=== PATIENT | male | born 1985 | race Caucasian/White ===

== ENCOUNTER 2017-10-17 15:39 | Emergency (ER) | payer SELFPAY ==
--- NOTE | 2017-10-17 15:58 | EDM.PDOC ---
ED HPI GENERAL MEDICAL PROBLEM - General Chief Complaint: Upper Extremity Injury/Pain Stated Complaint: LT SHOULDER HURTS Time Seen by Provider: 10/17/17 15:58 Source of Information: Reports: Patient - History of Present Illness INITIAL COMMENTS - FREE TEXT/NARRATIVE: HISTORY AND PHYSICAL: History of present illness: [Patient presents with left shoulder pain, as well as pain of his proximal collarbone after tying his 's boots, no deformity patient appreciates a crepitus over his or no clavicular she is tender to him he is in no distress rates pain 2 out of 10 he does have some muscle spasm along infraspinatus on the left otherwise completely normal exam no trauma Either nausea vomiting chills sweats ] Review of systems: As per history of present illness and below otherwise all systems reviewed and negative. Past medical history: As per history of present illness and as reviewed below otherwise noncontributory. Surgical history: As per history of present illness and as reviewed below otherwise noncontributory. Social history: No reported history of drug or alcohol abuse. Family history: As per history of present illness and as reviewed below otherwise noncontributory. Physical exam: HEENT: Atraumatic, normocephalic, pupils reactive, negative for conjunctival pallor or scleral icterus, mucous membranes moist, throat clear, neck supple, nontender, trachea midline. Lungs: Clear to auscultation, breath sounds equal bilaterally, chest nontender. Heart: S1S2, regular, negative for clicks, rubs, or JVD. Abdomen: Soft, nondistended, nontender. Negative for masses or hepatosplenomegaly. Negative for costovertebral tenderness. Pelvis: Stable nontender. Genitourinary: Deferred. Rectal: Deferred. Extremities: Atraumatic, negative for cords or calf pain. Neurovascular unremarkable. Neuro: Awake, alert, oriented. Cranial nerves II through XII unremarkable. Cerebellum unremarkable. Motor and sensory unremarkable throughout. Exam nonfocal. Diagnostics: [Shoulder complete ] Therapeutics: [S Mcbride ibuprofen ] Impression: [Muscle spasm infraspinatus ] Definitive disposition and diagnosis as appropriate pending reevaluation and review of above. left collar bone Pain Score (Numeric/FACES): 3 - Related Data Allergies Allergy/AdvReac Type Severity Reaction Status Date / Time No Known Allergies Allergy Verified 10/17/17 16:05 Home Meds: Home Meds . [No Known Home Meds] 10/17/17 [History] Review of Systems - Review of Systems Review Of Systems: See Below ED EXAM, GENERAL - Physical Exam Exam: See Below Course - Vital Signs Last Recorded V/S: Last Vital Signs Temp 97.2 F 10/17/17 16:02 Pulse 63 10/17/17 16:02 Resp 16 10/17/17 16:02 BP 131/74 10/17/17 16:02 Pulse Ox 94 L 10/17/17 16:02 - Orders/Labs/Meds Orders: Active Orders 24 hr Category Date Time Status Shoulder Comp Lt [CR] Stat Exams 10/17/17 15:58 Taken Departure - Departure Time of Disposition: 16:46 Disposition: Home, Self-Care 01 Condition: Good Clinical Impression: Muscle spasm - Discharge Information Referrals: PCP,None [Primary Care Provider] - Forms: ED Department Discharge Additional Instructions: The following information is given to patients seen in the emergency department who are being discharged to home. This information is to outline your options for follow-up care. We provide all patients seen in our emergency department with a follow-up referral. The need for follow-up, as well as the timing and circumstances, are variable depending upon the specifics of your emergency department visit. If you don't have a primary care physician on staff, we will provide you with a referral. We always advise you to contact your personal physician following an emergency department visit to inform them of the circumstance of the visit and for follow-up with them and/or the need for any referrals to a consulting specialist. The emergency department will also refer you to a specialist when appropriate. This referral assures that you have the opportunity for follow-up care with a specialist. All of these measure are taken in an effort to provide you with optimal care, which includes your follow-up. Under all circumstances we always encourage you to contact your private physician who remains a resource for coordinating your care. When calling for follow-up care, please make the office aware that this follow-up is from your recent emergency room visit. If for any reason you are refused follow-up, please contact the [facility] emergency department at and asked to speak to the emergency department charge nurse. - My Orders Last 24 Hours: My Active Orders 10/17/17 15:58 Shoulder Comp Lt [CR] Stat - Assessment/Plan Last 24 Hours: My Active Orders 10/17/17 15:58 Shoulder Comp Lt [CR] Stat
--- NOTE | 2017-10-18 09:04 | CR ---
EXAM DATE: 10/17/17 PATIENT'S AGE: 32 Patient: MARIE THOMASON Facility: [place], [place] Site . Site : [id number] Study: XRay Shoulder Left [id number]/[id number] 4:32:36 PM Ordering Physician: Ronaldo Contreras Final Report: INDICATION: ac joint pain after tying wifes shoelace yesterday LEFT SHOULDER No fracture, dislocation, or destructive lesion of bone is seen. No significant arthritic changes or soft tissue abnormalities are identified. IMPRESSION: Negative left shoulder radiographs. SHANTHI CATSREJON MD [facility] Dictated by: Koko Castrejon MD @ 10/17/2017 16:50:32 (Electronic Signature) Report Signed by Proxy. [facility]
== END 2017-10-17 16:57 | disposition home or self-care (01) ==
LOC: MW.ED 15:39
DX: M62.830 Muscle spasm of back (principal); X50.9XXA Other and unspecified overexertion or strenuous movements or postures, initial encounter
CPT/HCPCS: 73030-26-LT; 73030-LT; 99283

== ENCOUNTER 2022-11-27 08:29 | Emergency (ER) | payer BC ==
[2022-11-27] MEDS ORDERED: Dexamethasone 10 MG/ML SDV IM STA (08:37)
[2022-11-27] MEDS ORDERED: Amoxicillin/Clavulanate K 875-125 MG Tab PO ONE (08:41)
== END 2022-11-27 09:10 | disposition home or self-care (01) ==
LOC: MW.ED 08:29
DX: K12.2 Cellulitis and abscess of mouth (principal)
CPT/HCPCS: 96372; 99282; A9270; J1100; 99283